=== PATIENT | female | born 1950 | race African-American/Black ===

== ENCOUNTER → 2016-06-07 | Day surgery (SDC) | payer BC ==
[~2016-06-07] MED LIST: GLIMEPIRIDE2 MG PO; JANUVIA100 MG PO; LEVO-T75 MCG PO; LOVASTATIN20 MG PO; METFORMIN HCL500 M4 PO; VITAMIN B-121000 MCG PO; VITAMIN D1000 UNI2 PO; ZESTORETIC 20-1 EAC2 PO
--- NOTE | ~2016-06-07 | OR ---
Unit #: [id number] #: [id number] Patient: ALEXA MCKEON [id number] [address] [place], [place] [address] [id number] MR#: [id number] NAME: ALEXA MCKEON ROOM: Date of Procedure: 06/07/2016 Admission Date: 06/07/2016 Surgeon: Juan Abdalla M.D. : 1950 Attending Physician: Juan Abdalla M.D. Primary Care Physician: Javier Nguyen M.D. OPERATIVE REPORT PRIMARY CARE PHYSICIAN Javier Nguyen M.D. PREOPERATIVE DIAGNOSIS Colorectal cancer screening in an average-risk patient. PROCEDURE PERFORMED Colonoscopy up to cecum with excellent preparation and good visualization. POSTOPERATIVE DIAGNOSIS Completely normal examination up to cecum. The patient did not have any polyps nor any diverticula or hemorrhoids. RECOMMENDATIONS Repeat colonoscopy in 10 years. SEDATION USED MAC. DESCRIPTION OF PROCEDURE Following detailed explanation of potential risks and complications of a colonoscopy, namely perforation, bleeding, and complications related to sedation, the patient was brought to GI lab and laid in the left lateral decubitus position. A digital rectal examination was performed, which was normal. Lubricated tip of the Olympus video colonoscope was inserted through the anus and advanced under direct vision. The scope was advanced and passed up to sigmoid into descending colon. No diverticula were seen in this area. The scope tip was then navigated all the way up to cecum with visualization of the ileocecal valve and the appendiceal orifice. Preparation was excellent with good visualization and photodocumentation was obtained. Last several inches of the terminal ileum also visualized after intubation of the ileocecal valve and appeared normal. Successive segments of the colonic mucosa were examined upon withdrawal and appeared unremarkable. There being no polyps, mass lesions, AVMs, or diverticula. The patient did not have any hemorrhoids at anal verge. The scope was then withdrawn. Thee patient returned to the recovery area. She tolerated the procedure without any postprocedure complications. Dictated by... Juan Abdalla M.D. Unit #: [id number] #: [id number] Patient: ALEXA MCKEON BROCK/phillip TD: 06/08/2016 01:18 JOB #: [id number] OPERATIVE REPORT Page 1 of 1 X Juan Abdalla MD PROCEDURE OPERATIVE NOTE
== END | disposition home or self-care (01) ==
LOC: COPS 07:28
PROVIDERS: Internal Medicine Gastroenterology
PROC: 0DJD8ZZ Inspection of Lower Intestinal Tract, Via Natural or Artificial Opening Endoscopic (ICD-10-PCS; principal; 2016-06-07 09:30)
DX: Z12.11 Encounter for screening for malignant neoplasm of colon (principal); E03.9 Hypothyroidism, unspecified; E11.9 Type 2 diabetes mellitus without complications; Z79.84 Long term (current) use of oral hypoglycemic drugs; I10 Essential (primary) hypertension; E78.5 Hyperlipidemia, unspecified; Z79.899 Other long term (current) drug therapy; Z90.710 Acquired absence of both cervix and uterus
CPT/HCPCS: 82947